=== PATIENT | male | born 1945 | race Caucasian/White ===

== ENCOUNTER → 2018-10-10 13:35 | Outpatient (CLI) | payer MEDICARE, SELFPAY ==
[2018-10-10 14:23] LABS: Basophils # 0.1 K/mm3 (0-0.2); Basophils % 0.9 % (0.1-2.0); Eosinophils # 0.2 K/mm3 (0.0-0.4); Eosinophils % 2.5 % (0.1-12.0); Hematocrit 44.2 % (42.0-52.0); Hemoglobin 14.8 g/dL (14.1-18.0); Lymphocytes # 2.3 K/mm3 (0.7-4.5); Lymphocytes % 26.9 % (10-50); Mean Corpuscular HGB Conc 33.5 g/dL (31.8-35.4); Mean Corpuscular Hemoglobin 29.6 pg (27.0-31.2); Mean Corpuscular Volume 88.4 fl (80-94); Mean Platelet Volume 7.3 fl (7.4-10.4); Monocytes # 0.5 K/mm3 (0.1-1.0); Monocytes % 5.4 % (1.7-9.3); Neutrophils # 5.4 K/mm3 (1.8-7.8); Neutrophils % 64.4 % (37.0-80.0); Platelet Count 259 K/mm3 (142-424); Red Cell Distribution Width 13.4 % (11.5-17.5); White Blood Count 8.4 K/mm3 (4.8-10.8)
[2018-10-10 15:50] LABS: Anion Gap 12.8 mEq/L (5-15); Blood Urea Nitrogen 14 mg/dL (7-18); Calcium 9.1 mg/dL (8.5-10.1); Carbon Dioxide 30 mmol/L (21.0-32.0); Chloride 103 mmol/L (98-107); Creatinine,Serum 0.91 mg/dL (0.70-1.30); Estimated Glomerular Filt Rate 82 ml/min (>60); GFR (African American) 100 ML/MIN (>60); Glucose 195 mg/dL (74-106); Potassium 3.8 mmoL/L (3.5-5.1); Sodium 142 mmol/L (136-145)
== END ==
PROVIDERS: Visit Provider Otolaryngology
DX: Z01.818 Encounter for other preprocedural examination (principal); C44.212 Basal cell carcinoma of skin of right ear and external auricular canal
CPT/HCPCS: 36415; 80048; 85025; 93005

== ENCOUNTER → 2019-05-02 09:10 | Outpatient (CLI) | payer MEDICARE, SELFPAY ==
--- NOTE | 2019-05-02 09:19 | XR_ITS ---
XR hip RT 2-3V w/pelvis HISTORY: ITS.REASON: RT HIP PAIN ORDERING PHYSICIAN: Omar Peoples MD PATIENT AGE: 73 years COMPARISON: None FINDINGS: There are mild osteoarthritic changes of the right hip. There is a small os acetabulum. Mild hypertrophic changes are present along the greater trochanter inferiorly.. No fracture or dislocation. No lytic or blastic change IMPRESSION: Mild osteoarthritis of the right hip
--- NOTE | 2019-05-02 09:19 | XR_ITS ---
XR knee RT 3V HISTORY: ITS.REASON: RT KNEE PAIN ORDERING PHYSICIAN: Omar Peoples MD PATIENT AGE: 73 years COMPARISON: None FINDINGS: There are mild osteoarthritic changes involving all 3 compartments. No fracture or dislocation is evident. Incidental vascular calcification noted as well as some subcutaneous densities in the anterior knee at the distal femur and medial proximal tibial area. IMPRESSION: Osteoarthritis
== END ==
PROVIDERS: PCP Family Medicine; Visit Provider Family Medicine
DX: M25.561 Pain in right knee (principal); M25.551 Pain in right hip
CPT/HCPCS: 73502; 73562

== ENCOUNTER → 2020-09-23 15:16 | Outpatient (CLI) | payer MEDICARE, SELFPAY ==
[2020-09-25 09:54] LABS: Covid-19 Nasal PCR Sendout Lex POSITIVE
== END ==
PROVIDERS: PCP Family Medicine; Visit Provider Family Medicine
DX: Z20.828 Contact with and (suspected) exposure to other viral communicable diseases (principal); U07.1 COVID-19
CPT/HCPCS: U0004

== ENCOUNTER → 2022-06-16 10:44 | Outpatient (CLI) | payer MEDICARE, SELFPAY ==
--- NOTE | 2022-06-16 10:52 | XR_ITS ---
FINAL REPORT CLINICAL HISTORY: RIGHT SIDED SCIATICA COMPARISON: May 15, 2017 FINDINGS: LUMBAR SPINE 5 views of the lumbar spine were obtained. There is no evidence of fracture or dislocation. There is mild rightward curvature. The vertebral alignment is normal. There are moderate and severe degenerative changes with osteophytes which have progressed since the prior exam. There are degenerative changes of the SI joints. There are mild vascular calcifications. IMPRESSION: Moderate and severe degenerative changes which have progressed since the prior exam. No acute bony abnormality. Reviewed, Interpreted and Dictated by Yobany Avalos III, MD Transcribed by [place] Authenticated and [facility]
== END ==
PROVIDERS: PCP Family Medicine; Visit Provider Family Medicine
DX: M54.31 Sciatica, right side (principal); R29.898 Other symptoms and signs involving the musculoskeletal system
CPT/HCPCS: 72110

== ENCOUNTER 2023-12-21 14:43 | Outpatient (CLI) | payer MEDICARE, SELFPAY ==
--- NOTE | 2023-12-21 14:53 | US_ITS ---
FINAL REPORT CLINICAL HISTORY: DM, HLD, HTN, CLAUDICATION FINDINGS: COMPLETE ANKLE/BRACHIAL INDICES BILATERAL Ankle brachial indices were obtained. The right FABI is 1.3. The left FABI is 1.2. IMPRESSION: ABIs are within normal limits bilaterally. Reviewed, Interpreted and Dictated by Yobany Avalos III, MD Transcribed by Natalie Lerma Authenticated and . [facility]
== END 2023-12-21 23:59 ==
LOC: RT 14:44
PROVIDERS: PCP Family Medicine; Visit Provider Family Medicine
DX: I70.213 Atherosclerosis of native arteries of extremities with intermittent claudication, bilateral legs (principal); E11.65 Type 2 diabetes mellitus with hyperglycemia; I10 Essential (primary) hypertension; Z79.84 Long term (current) use of oral hypoglycemic drugs
CPT/HCPCS: 93923

== ENCOUNTER 2024-01-08 14:57 | Outpatient (CLI) | payer MEDICARE, SELFPAY ==
--- NOTE | 2024-01-08 15:02 | MR_ITS ---
FINAL REPORT CLINICAL HISTORY: DISC DEGENERATION. low back pain. Burning pain down right leg. Bilateral leg numbness FINDINGS: Multiplanar MR imaging of the lumbar spine was performed without contrast. On the sagittal T2-weighted images, there is abnormal decreased signal throughout the lumbar discs. The vertebrae are of normal height. The vertebral alignment is normal. L1-2: Moderate diffuse disc bulge is present. There is moderate spinal canal compromise and mild bilateral neural foraminal narrowing. L2-3: Moderate diffuse disc bulge is present. There is high-grade spinal canal compromise. There is moderate facet hypertrophy and moderate bilateral neural foraminal narrowing. L3-4: Moderate diffuse disc bulge is present. There is high-grade spinal canal compromise. There is bilateral facet hypertrophy and moderate bilateral neural foraminal narrowing. L4-5: Moderate diffuse disc bulge is present. There is bilateral facet hypertrophy and ligamentum flavum hypertrophy. There is high-grade spinal canal compromise. There is near complete effacement of the thecal sac. L5-S1: Left paracentral disc protrusion is present with moderate compromise of the left lateral recess. There is moderate left neural foraminal narrowing. IMPRESSION: Multilevel degenerative disc disease with spinal canal compromise most evident at L2-3 and L4-5. Left paracentral disc protrusion at L5-S1. Reviewed, Interpreted and Dictated by Gideon Kimball MD Transcribed by Natalie Lerma Authenticated and [facility]
== END 2024-01-08 23:59 ==
LOC: RAD 14:58
PROVIDERS: PCP Family Medicine; Visit Provider Family Medicine
DX: M51.36 Other intervertebral disc degeneration, lumbar region (principal); M47.816 Spondylosis without myelopathy or radiculopathy, lumbar region; M47.26 Other spondylosis with radiculopathy, lumbar region; R29.818 Other symptoms and signs involving the nervous system
CPT/HCPCS: 72148; 76376

== ENCOUNTER 2024-04-23 21:58 | Observation (INO) | payer MEDICARE, SELFPAY ==
[2024-04-23] VITALS (11 sets, daily range): BP systolic 80–137; BP diastolic 27–79; PULSE 90–101; RESP 15–23; TEMP 36.9; O2SAT 87–99; BMI 31.7
--- NOTE | 2024-04-23 22:15 | ED_ITS ---
<Statement entered by Jack Villegas MD - 04/23/24 23:38> I was consulted by the PADDY, and we discussed the complexity of the problems being addressed. I approved the treatment and management plan for this patient's care in the emergency department, thus performing a substantive portion of the medical decision making. Prior to handoff to Dr. Lott patient had a robust response to Valium which was ordered prior to her assumption of care. He had transient hypotension which resolved with crystalloid bolus, no further action at this time. Patient does have nerve pain and neuropathic distribution along L5: Along the posterior aspect of his leg into his foot. However the emphasis is on is to rule out critical pathology therefore CT imaging is warranted. Jack Villegas MD Discharge Plan Disposition Chief Complaint: PAIN Prescriptions Prescriptions: No Action amlodipine-benazepril [Lotrel] 10-40 mg capsule 1 cap PO DAILY aspirin 81 mg tablet,delayed release (DR/EC) 81 mg PO DAILY metoprolol succinate 100 mg capsule,sprinkle,ER 24hr 100 mg PO DAILY lovastatin 40 mg tablet 40 mg PO DAILY metformin 500 mg tablet 500 mg PO 30 Days hydrochlorothiazide 25 mg tablet 25 mg PO 30 Days Referrals Follow up/Referrals: Omar Peoples MD [Primary Care Provider] - See instructions Discharge ED Provider: Jack Villegas General Adult HPI General Chief complaint: PAIN Stated complaint: Pain Time Seen by Provider: 04/23/24 22:15 History of Present Illness HPI narrative: Patient presents for evaluation of acute left lower extremity pain. Patient reports that he had acute onset of left low back pain/left lower extremity pain. However patient recently had a lumbar laminectomy done by Dr. Mcclendon at [facility] in February. He initially had difficulty ambulating postoperatively and ultimately had a prolonged stay [facility] followed by a 3-week stay at [facility]. Patient has been home for 3 weeks however he has now been able to ambulate with a walker. He has had some mild lumbar pain postoperatively but has been fairly independent intact tibias of daily living so much so that he and his are going to dinner this evening however he was hit with a acute onset left lumbar buttock and what he describes as hip pain. He states it is sharp stabbing. He denies paresthesias loss of bowel or bladder function or saddle anesthesia. He denies calf tenderness chest pain shortness of breath fever chills hemoptysis hematochezia melena nausea vomit diarrhea Related Data Home Medications Medication Instructions Recorded Confirmed amlodipine 10 mg-benazepril 40 mg 1 cap PO DAILY blood pressure 09/14/18 11/08/18 capsule (Lotrel) aspirin 81 mg tablet,delayed 81 mg PO DAILY thinner 09/14/18 11/08/18 release lovastatin 40 mg tablet 40 mg PO DAILY Cholesterol 09/14/18 11/08/18 metoprolol succinate 100 mg 100 mg PO DAILY bloood pressure 09/14/18 11/08/18 capsule sprinkle, ext. release 24 hr hydrochlorothiazide 25 mg tablet 25 mg PO 30 days 11/08/18 11/08/18 metformin 500 mg tablet 500 mg PO 30 days 11/08/18 11/08/18 Allergies Allergy/AdvReac Type Severity Reaction Status Date / Time No Known Drug Allergies Allergy Unknown Verified 11/08/18 14:49 [NKDA] [facility] Disclaimer: The information contained in this section may have been updated after the patient was seen, as this information can be updated by other users. Social History Smoking Status: Unknown if ever smoked alcohol intake: never substance use type: denies use current occupational status: retired Travel in the last 8 weeks: None household members: spouse housing: house current occupational exposures/hazards: No caffeine: No ROS Obtained: Yes Systems reviewed as appropriate & no additional complaints except as documented Physical Exam General General appearance: alert and in no apparent distress Head Head exam: atraumatic and normal inspection Eye Eye exam: Present normal appearance and EOMI ENT ENT exam: Present normal exam, normal oropharynx and mucous membranes moist Neck Neck exam: Present normal inspection and full ROM Chest Chest inspection: Present normal inspection and symmetric chest wall rise Respiratory Respiratory exam: Present normal lung sounds bilaterally Cardiovascular Cardiovascular exam: Present regular rate and normal rhythm Abdominal Exam Abdominal exam: Present soft and normal bowel sounds; Absent tenderness, guarding or rebound Extremities Exam Extremities exam: Present normal inspection; Absent full ROM Back Exam Back exam: Present normal inspection and tenderness; Absent full ROM or vertebral tenderness Neurological Exam Neurological exam: Present alert, oriented X3, CN II-XII intact and reflexes normal; Absent normal gait or motor sensory deficit Medical Decision Making Medical Records Medical records reviewed: Yes I reviewed the patient's medical records. Harpreet Inquiry Pt receiving controlled substance: No Vital Signs: 04/23/24 21:58 Temperature 98.4 F Temperature Source Oral Pulse Rate [Left Radial] 101 H Respiratory Rate 18 Blood Pressure [Right Arm] 137/60 Blood Pressure Mean [Right Arm] 85 Blood Pressure Source [Right Arm] Automatic Cuff Blood Pressure Position [Right Arm] Supine 02 Sat by Pulse Oximetry 95 Oxygen Delivery Method Room Air Lab Data Lab results reviewed: Yes I reviewed the patient's lab results. Orders (Tests/Meds): ED MEDICATIONS Generic Name Dose Route Start Last Admin Trade Name Freq PRN Reason Stop Dose Admin Acetaminophen 1,000 mg 04/23/24 22:24 Acetaminophen 1,000mg/100ml Vial IV 04/23/24 22:25 ONCE ONE Dexamethasone Sodium Phosphate 10 mg 04/23/24 22:24 Dexamethasone 4mg/Ml 5ml Mdv IV 04/23/24 22:25 ONCE ONE Lactated Ringer's 1,000 mls @ 999 mls/hr 04/23/24 22:24 Lactated Ringer's 1000 Ml Bag IV 04/23/24 23:24 .Q1H1M ONE Ketorolac Tromethamine 15 mg 04/23/24 22:24 Ketorolac 30mg/Ml Vial IV 04/23/24 22:25 ONCE ONE Ondansetron HCl 4 mg 04/23/24 22:24 Ondansetron 4mg/2ml Vial IV 04/23/24 22:25 ONCE ONE Discontinued Medications Generic Name Dose Route Start Last Admin Trade Name Freq PRN Reason Stop Dose Admin Methocarbamol 500 mg 04/23/24 22:24 Methocarbamol 500mg Tablet PO 04/23/24 22:25 ONCE ONE ORDERS Category Date Time Status CT bony pelvis Stat Cat Scan 04/23/24 22:[address] lumbar spine wo con Stat Cat Scan 04/23/24 22:24 Ordered CBC w/Auto Diff [Complete Blood Count Auto Diff] Stat Lab 04/23/24 22:24 Ordered CMP [Comprehensive Metabolic Panel] Stat Lab 04/23/24 22:24 Ordered Magnesium Stat Lab 04/23/24 22:25 Ordered Medical Decision Narrative: In summary patient is a 78-year-old male who presents to the emergency department for evaluation of left low back pain left lower extremity pain. Patient is hemodynamically stable upon arrival, afebrile. Physical exam is remarkable for tenderness to palpation in the lumbar spine left glutes area with exquisite increase in pain with attempted range of motion testing. Patient is however neurovascular tact distally. Patient has no dependent erythema or palpable cords. He does have motor and sensory intact distally. He has no saddle anesthesia surgical site appears to be well-healed.. Differential diagnosis includes sciatica versus muscle spasm versus disc herniation versus stenosis etc. Initial workup will be conducted with hematologic labs CT scan of the lumbar spine and bony pelvis. Initial interventions include crystalloid bolus Toradol Tylenol Decadron and Valium. Initial workup started and pending at the time of handoff to Dr. Lott at 2300 hrs. Critical Care Critical Care Time Critical Care Time: No
--- NOTE | 2024-04-23 22:24 | CT_ITS ---
PROCEDURE INFORMATION: Exam: CT Pelvis Without Contrast; Skeletal Exam date and time: 04/23/2024 11:28 PM Age: 78 years old Clinical indication: Pelvic pain; Additional info: Acute low back pain, left lower extremity pain TECHNIQUE: Imaging protocol: Computed tomography of the pelvis without contrast. Exam focused on the skeleton. Radiation optimization: All CT scans at this facility use at least one of these dose optimization techniques: automated exposure control; mA and/or kV adjustment per patient size (includes targeted exams where dose is matched to clinical indication); or iterative reconstruction. COMPARISON: CR [id number] HIP LT 2-3V W/PELVIS IF PERFOR 05/15/2017 9:46 AM FINDINGS: Intestine: Left colon diverticulosis without acute inflammation. Reproductive: The prostate gland is significantly enlarged. Urinary bladder: The urinary bladder significantly distended without focal abnormality. Bones/joints: The SI joints, hips and pubic symphysis are normally aligned. There are riuk-xe-uortryua degenerative changes of the SI joints and hips. No acute fracture. No evidence for avascular necrosis. Soft tissues: Small fat containing left inguinal hernia. IMPRESSION: 1. No acute findings. Txnh-zb-[id number] degenerative changes of the SI joints and hips. 2. Other nonemergent findings as noted.
--- NOTE | 2024-04-23 22:24 | CT_ITS ---
PROCEDURE INFORMATION: Exam: CT Lumbar Spine Without Contrast Exam date and time: 04/23/2024 11:26 PM Age: 78 years old Clinical indication: Low back pain; Additional info: Acute low back pain left lower extremity pain TECHNIQUE: Imaging protocol: Computed tomography of the lumbar spine without contrast. Radiation optimization: All CT scans at this facility use at least one of these dose optimization techniques: automated exposure control; mA and/or kV adjustment per patient size (includes targeted exams where dose is matched to clinical indication); or iterative reconstruction. COMPARISON: MR LUMBAR SPINE WO CON 01/08/2024 3:06 PM FINDINGS: Bones/joints: Subtle scoliosis is noted convex right centered at L1-L2. Moderate degenerative disc disease at L1-L2 and L2-L3 with zzgi-kx-[id number] degenerative disc disease from L3 through S1. There has been laminectomy throughout the lumbar spine. No acute fracture. Diffuse significant facet arthropathy is present. There is slgq-bw-sblryfkp bony foraminal stenosis on the left at L5-S1. There are mild to moderate degenerative changes of the SI joints. Kidneys and ureters: Nonobstructing left intrarenal calculi are noted. Urinary bladder: Significant distension of the urinary bladder is noted. Reproductive: The prostate gland is significantly enlarged. Soft tissues: Unremarkable. IMPRESSION: 1. No acute findings of the lumbar spine. 2. Laminectomy from L1 through L5. 3. Bewn-ez-fvsvbmpi left foraminal stenosis at L5-S1. 4. Significant distension of the urinary bladder. 5. Other nonurgent findings as noted.
[2024-04-23 22:36] LABS: Basophils % 0.5 % (0.1-2.0); Eosinophils # 0.1 K/mm3 (0.0-0.4); Eosinophils % 0.9 % (0.1-12.0); Hematocrit 41.5 % (42.0-52.0); Hemoglobin 13.8 g/dL (14.1-18.0); Lymphocytes # 1.2 K/mm3 (0.7-4.5); Lymphocytes % 13.2 % (10-50); Mean Corpuscular HGB Conc 33.3 g/dL (31.8-35.4); Mean Corpuscular Hemoglobin 29.7 pg (27.0-31.2); Mean Corpuscular Volume 89.3 fl (80-94); Monocytes # 0.3 K/mm3 (0.1-1.0); Monocytes % 3.2 % (1.7-9.3); Neutrophils # 7.6 K/mm3 (1.8-7.8); Neutrophils % 82.2 % (37.0-80.0); Platelet Count 354 K/mm3 (142-424); Red Blood Count 4.64 M/mm3 (4.60-6.20); Red Cell Distribution Width 14.3 % (11.5-17.5); White Blood Count 9.3 K/mm3 (4.8-10.8)
[2024-04-23] MEDS: DEXAMETHASONE 4MG/ML 5ML MDV 10 MG IV (22:43)
[2024-04-23] MEDS: LACTATED RINGERS 1000ML 1,000 ML 999 ML IV (22:43)
[2024-04-23] MEDS: ACETAMINOPHEN 1,000MG/100ML VIAL 1000 MG IV (22:43)
[2024-04-23] MEDS: ONDANSETRON 4MG/2ML VIAL 4 MG IV (22:44)
[2024-04-23] MEDS: diazePAM 10MG/2ML SYRINGE 5 MG IV (22:44)
[2024-04-23] MEDS: KETOROLAC 30MG/ML VIAL 15 MG IV (22:44)
[2024-04-23 22:51] LABS: Chloride 105 mmol/L (98-107)
[2024-04-23 22:52] LABS: Potassium 4.1 mmoL/L (3.5-5.1); Sodium 140 mmol/L (136-145)
[2024-04-23 22:54] LABS: Alanine Aminotransferase 47 U/L (12-78); Aspartate Amino Transferase 43 U/L (17-59); Blood Urea Nitrogen 16 mg/dl (9-20); Creatinine Clearance Estimated 87 mL/min (50-200); Estimated Glomerular Filt Rate 82 ml/min (>60); GFR (African American) 99 ML/MIN (>60)
[2024-04-23 22:55] LABS: Albumin Level 4.2 g/dl (3.5-5.0); Albumin/Globulin Ratio 1.6 (1.1-1.8); Alkaline Phosphatase 105 U/L (38-126); Anion Gap 11.1 mEq/L (5-15); Bilirubin,Total 0.4 mg/dl (0.2-1.3); Calcium 10.1 mg/dl (8.4-10.2); Carbon Dioxide 28 mmol/L (22.0-30.0); Globulin 2.6 g/dL (1.3-3.2); Glucose 177 mg/dl (74-100); Total Protein,Serum 6.8 g/dl (6.3-8.2)
--- NOTE | 2024-04-23 23:04 | PC.NURSE ---
Pt O2 dropped to 87% and BP dropped to 80's over 40's after administration of valium. Pt placed on 2L NC and LR placed on pressure bag. MD Villegas notified and at bedside at this time. Pt is A&OX4
[2024-04-23 23:15] LABS: Magnesium 1.4 mg/dl (1.6-2.3)
--- NOTE | 2024-04-23 23:19 | PC.NURSE ---
pts BP improved to 130/60 MD aware
[2024-04-23] MEDS: MAGNESIUM OXIDE 400MG TABLET 400 MG PO (23:39)
[2024-04-24] VITALS (13 sets, daily range): BP systolic 95–160; BP diastolic 40–97; PULSE 60–105; RESP 13–22; TEMP 36.3–37; O2SAT 91–96; BMI 27.2
--- NOTE | 2024-04-24 00:17 | PC.NURSE ---
rounded on pt and pts family. no needs voiced at this time
--- NOTE | 2024-04-24 00:36 | PC.NURSE ---
Pt was placed back on room air @2215. Pt has tolerated well. Pt has maintained O2 sats >90%. SBP has maintained >110. Pt still reports left hip/buttock pain that radiates down left leg. Lott aware.
--- NOTE | 2024-04-24 01:00 | PC.NURSE ---
rounded on pt at this time. MD Patrick at bedside. Pt and family voice no needs at this time.
--- NOTE | 2024-04-24 01:12 | P.HP_ITS ---
History of Present Illness *Admission Date: 04/24/24 *History of present illness: Patient presents for evaluation of acute left lower extremity pain. Patient reports that he had acute severe onset of left low back pain/left lower extremity pain. However patient recently had a lumbar laminectomy done by Dr. Mcclendon at [facility] in February. He initially had difficulty ambulating postoperatively and ultimately had a prolonged stay [facility] followed by a 3-week stay at [facility]. Patient has been home for 3 weeks however he has now been able to ambulate with a walker. He has had some mild lumbar pain postoperatively but has been fairly independent intact tibias of daily living so much so that he and his are going to dinner this evening however he was hit with a acute onset left lumbar buttock and what he describes as hip pain. He states it is sharp stabbing. Radiates down his leg into his foot. Was more active today working with therapy doing his exercises including walking up and down the ramp of his house for the first time. He does not think that he overdid his exercises. He is unable to move in bed due to the severity of his pain and is requesting assistance as he cannot go home in this condition. CT scans done in the ER demonstrated no acute finding or pathology Received Toradol, dexamethasone, Tylenol, Valium with minimal improvement in his symptoms. He became transiently hypotensive with Valium. Currently in severe pain unable to move Related Data [facility] B[facility] AT THE [facility] Disclaimer: The information contained in this section may have been updated after the patient was seen, as this information can be updated by other users. Social History Smoking Status: Unknown if ever smoked alcohol intake: never substance use type: denies use current occupational status: retired Travel in the last 8 weeks: None household members: spouse housing: house current occupational exposures/hazards: No caffeine: No Review of Systems Review of Systems Review of systems:: pertinent systems reviewed and negative unless documented below *Musculoskeletal Musculoskeletal: Reports as per HPI, Reports arthralgias, Reports back pain and Reports radiating pain into limb Meds Home Medications and Allergies Home Medications Medication Instructions Recorded Confirmed Type amlodipine 10 mg-benazepril 40 mg 1 cap PO DAILY blood pressure 09/14/18 11/08/18 History capsule (Lotrel) aspirin 81 mg tablet,delayed 81 mg PO DAILY thinner 09/14/18 11/08/18 History release lovastatin 40 mg tablet 40 mg PO DAILY Cholesterol 09/14/18 11/08/18 History metoprolol succinate 100 mg 100 mg PO DAILY bloood pressure 09/14/18 11/08/18 History capsule sprinkle, ext. release 24 hr hydrochlorothiazide 25 mg tablet 25 mg PO 30 days 11/08/18 11/08/18 History metformin 500 mg tablet 500 mg PO 30 days 11/08/18 11/08/18 History New Prescriptions to Start Prescriptions: Allergies Allergy/AdvReac Type Severity Reaction Status Date / Time No Known Drug Allergies Allergy Unknown Verified 11/08/18 14:49 [NKDA] Exam Data for Last 24 hours Vital signs and Labs for Last 24 Hours: Temp Pulse Resp BP Pulse Ox O2 Del Method O2 Flow Rate 98.4 F 88 15 112/59 L 93 L Nasal Cannula 2 04/23/24 21:58 04/24/24 00:50 04/24/24 00:50 04/24/24 00:50 04/24/24 00:50 04/23/24 23:02 04/23/24 23:02 Laboratory Results - last 24 hr 04/23/24 22:25: WBC 9.3, RBC 4.64, Hgb 13.8 L, Hct 41.5 L, MCV 89.3, MCH 29.7, MCHC 33.3, RDW 14.3, Plt Count 354, MPV 8.0, Neut % (Auto) 82.2 H, Lymph % (Au to) 13.2, Stone % (Auto) 3.2, Eos % (Auto) 0.9, Baso % (Auto) 0.5, Neut # (Auto) 7.6, Lymph # (Auto) 1.2, Stone # (Auto) 0.3, Eos # (Auto) 0.1, Baso # (Auto) 0.0, Sodium 140, Potassium 4.1, Chloride 105, Carbon Dioxide 28, Anion Gap 11.1, BUN 16, Creatinine 0.90, Estimated Creat Clear 87, Estimated GFR 82, Est GFR ( Amer) 99, Glucose 177 H, Calcium 10.1, Magnesium 1.4 L, Total Bilirubin 0.4, AST 43, ALT 47, Alkaline Phosphatase 105, Total Protein 6.8, Albumin 4.2, Globulin 2.6, Albumin/Globulin Ratio 1.6 I & O for Last 24 hours: Intake & Output 04/21/24 04/22/24 04/23/24 04/24/24 23:59 23:59 23:59 23:59 Weight 97.522 kg Constitutional Constitutional: no acute distress *Routine HEENT Exam Head: Present normocephalic Eye: Present EOMI and PERRL ENT: Present mucous membranes moist *Routine Neck Exam Neck: Present supple; Absent lymphadenopathy *Routine Respiratory Exam Respiratory: Present CTA bilaterally *Routine Cardiovascular Exam Cardiovascular: Present RRR *Routine Abdominal Exam Abdominal: Present soft and normoactive bowel sounds; Absent tenderness *Routine Rectal Exam Rectal:: deferred *Routine Genitalia Exam Genitalia:: deferred *Routine Extremities Exam Extremities: Absent cyanosis, clubbing or edema Routine Back/Spine/Pelvis Exam Back/Spine: Present paraspinal tenderness and vertebral tenderness Comments: L buttock pain *Routine Skin Exam Skin: Present warm; Absent rash *Routine Neurological Exam Neurological: Present alert and oriented X3 Assessment and Plan *Assessment and plan (1) Back pain: Status: Acute Category: Medical Code(s): M54.9 - Dorsalgia, unspecified (2) Severe pain: Status: Acute Category: Medical Code(s): R52 - Pain, unspecified Plan 78-year-old man with recent laminectomy presenting with severe retractable back pain radiating down his legs. Patient is unable to move in bed, symptoms sound like sciatica possibly exacerbated by increasing activity. Patient is requiring aggressive pain management due to the severe burden of his symptoms. Will initiate morphine now and gabapentin with the plan to decrease morphine dosage as gabapentin becomes therapeutic. Adjust both as tolerated Pain management Severe back pain Laminectomy -In the emergency department had minimal effect with Toradol, Valium, acetaminophen dexamethasone, methocarbamol -Retitrate as pain improves -Morphine 2 mg every 2 hours as needed -Gabapentin 200 mg 3 times daily -Adjust medications as needed, treat to affect Hypertension -Hold home medications currently controlled -Resume amlodipine benazepril, Toprol, and hydrochlorothiazide once able Hyperlipidemia -Lovastatin 40
--- NOTE | 2024-04-24 01:19 | PC.NURSE ---
Report called to Elaine Gomez RN on 2nd floor at this time.
[2024-04-24] MEDS: GABAPENTIN 100MG CAPSULE 200 MG PO ×4 (01:36→20:28)
--- NOTE | 2024-04-24 02:19 | PC.NURSE ---
Patient arrived to floor via stretcher from ED at 1:27.
--- NOTE | 2024-04-24 06:40 | PC.NURSE ---
Pt is alert and oriented. Remained on right side since arriving. Pt has not complained of pain, pt rested well. When checking on patient and getting blood sugar, pt states he is in pain. Treating per dec. Pt uses urinal. Lung sounds clear. Pt does not move much in bed. Call light in reach. Bed alarm on based on severity of pain and unable to ambulate independently.
[2024-04-24] MEDS: MORPHINE 2MG/ML SYRINGE 2 MG IV ×2 (06:49→12:00)
[2024-04-24 06:51] LABS: Basophils % 0.3 % (0.1-2.0); Eosinophils % 0.4 % (0.1-12.0); Hematocrit 40.6 % (42.0-52.0); Hemoglobin 13.3 g/dL (14.1-18.0); Lymphocytes # 0.6 K/mm3 (0.7-4.5); Lymphocytes % 10.1 % (10-50); Mean Corpuscular HGB Conc 32.7 g/dL (31.8-35.4); Mean Corpuscular Volume 88.7 fl (80-94); Mean Platelet Volume 7.5 fl (7.4-10.4); Monocytes # 0.1 K/mm3 (0.1-1.0); Monocytes % 1.4 % (1.7-9.3); Neutrophils # 5.6 K/mm3 (1.8-7.8); Neutrophils % 87.8 % (37.0-80.0); Platelet Count 305 K/mm3 (142-424); Red Blood Count 4.58 M/mm3 (4.60-6.20); Red Cell Distribution Width 14.5 % (11.5-17.5); White Blood Count 6.4 K/mm3 (4.8-10.8)
[2024-04-24 06:55] LABS: MANUAL DIFFERENTIAL MANUAL DIFFERENTIAL (MANUAL DIFF)
[2024-04-24 07:05] LABS: Alanine Aminotransferase 42 U/L (12-78); Albumin Level 3.8 g/dl (3.5-5.0); Albumin/Globulin Ratio 1.5 (1.1-1.8); Alkaline Phosphatase 96 U/L (38-126); Anion Gap 9.9 mEq/L (5-15); Aspartate Amino Transferase 49 U/L (17-59); Bilirubin,Total 0.5 mg/dl (0.2-1.3); Blood Urea Nitrogen 20 mg/dl (9-20); Calcium 9.5 mg/dl (8.4-10.2); Carbon Dioxide 30 mmol/L (22.0-30.0); Chloride 103 mmol/L (98-107); Creatinine Clearance Estimated 74 mL/min (50-200); Estimated Glomerular Filt Rate 110 ml/min (>60); GFR (African American) 133 ML/MIN (>60); Globulin 2.5 g/dL (1.3-3.2); Glucose 167 mg/dl (74-100); Magnesium 1.5 mg/dl (1.6-2.3); Phosphorous 4.5 mg/dl (2.5-4.5); Potassium 3.9 mmoL/L (3.5-5.1); Sodium 139 mmol/L (136-145); Total Protein,Serum 6.3 g/dl (6.3-8.2)
[2024-04-24 07:55] LABS: Lymphocytes % 17 % (10-50); Monocytes % 1 % (2-9); Neutrophils % 82 % (42-76); Platelet Estimate Normal; RBC Morphology Normal; Total Cells Counted 100
--- NOTE | 2024-04-24 09:26 | HMH.PHAINT1 ---
Pharmacy Intervention Comments: MEDICATION RECONCILIATION COMPLETED ON PATIENT USING EXTERNAL FILL HISTORY FROM PHARMACY. -TIMO PICKARD, DOMINICD
[2024-04-24] MEDS: ENOXAPARIN 40MG/0.4ML SYRINGE 40 MG SQ (09:50)
--- NOTE | 2024-04-24 10:32 | HMH.PTEV ---
Physical Therapy Evaluation Rehab PT IP Evaluation Start: 04/24/24 09:32 Freq: ONCE Status: Active Protocol: Document 04/24/24 10:03 MARIA L (Rec: 04/24/24 10:31 MARIA L [id number]) Subjective/History History History Patient Jimmy Estrada is a 78 year old male who recently had a lumbar laminectomy done (February of this year), his chief complaints are LBP and L hip pain that travels distally towards the foot. Patient stated that he in extreme pain last night and was hardly able to walk and get into the car. The patient rates his current pain at a 9/10. Patient described the pain sharp and typically remains constant when occurring. He was previously able to ambulate at home and it was mentioned that he does not have any steps within the home or steps to enter in his home . The patient does use a rolling walking when able to ambulate. Patient is ready to get back to prior level of function in order to return back to work appropriately. Subjective Subjective Patient needed assistance with bedside transfer to bedside chair, overall he was compliant and appreciative of physical therapy helping him during this visit as he has not been out of bed yet. It is noted that he did experience some limitation when standing up from the edge of the bedside. In total the patient tolerated the physical therapy session very well but did experience some slight discomfort during activity. - Patient was properly positioned comfortably in the bedside chair, and the call camara was left within reach Rehab PT IP Eval Objective Appearance Patient Behavior Appropriate Patient Orientation Person,Place,Name,Birthday, Month Speech Pattern Clear,Appropriate,Coherent Balance Ability to Arise Able, uses arms to help Sitting Balance Leans or slides in chair Standing Balance Narrow stance w/o support Dynamic Sitting Balance Ability Good Dynamic Standing Balance Ability Good Transfers Bed Transfer Ability Independent Chair Transfer Ability Moderate x 1 (50% assist) Sit to Stand Chair Transfer Ability Moderate x 1 (50% assist) Pain left leg Pain Intensity 9 Rehab PT IP prob,goals,plan Problems Date of Evaluation: 04/24/24 PT IP Problems Transfers Rehab Potential Rehab Potential Good Equipment Needs Assistive Devices Rolling / Wheeled Walker Plan PT Intervention Plan Transfers,Gait,Therapeutic Exercise PT Plan Frequency Daily Duration LOS Discharge Goals Bed Transfer Ability Independent Sit to Stand Chair Transfer Ability Independent Ambulation Assistive Device Rolling Walker Discharge Plan PT Discharge Plan Patient is appropriate currently for skilled physical therapy/rehab placement to address his limitations and safety concerns. Eval Complexity Eval Charge Codes 47951 - High Complexity PHYSICIAN CERTIFICATION: I certify the specified therapy services for Jimmy Estrada are required, authorized, and reviewed every 30 days.
--- NOTE | 2024-04-24 11:24 | SW/DCPLANNER ---
Addendum entered by Isha Blake RN 04/26/24 15:10: Order/clinical faxed to [facility]. Original Note: I spoke w/ this patient regarding plans once medically stable for discharge. PT evaluated patient and recommended SNF level of care at time of discharge. Patient stated that he is currently established w/ [facility] and resides at home w/ his . Patient prefers to return back home and resume home health services at time of discharge. I will continue to follow up w/ lamine, MD and PT while admitted. Discharge date is unknown at this time.
[2024-04-24] MEDS: HYDROMORPHONE 2MG/ML SYRINGE 0.5 MG IV ×2 (16:27→22:31)
--- NOTE | 2024-04-24 17:51 | P.PN_ITS ---
Subjective *Date: 04/24/24 *Time: 17:59 Interval history: Patient interviewed multiple times today by Dr. Gee. Patient states he is improving with conservative therapy, and physical therapy sessions. Patient and patient's request several days. Of conservative therapy before cons idering transfer to [facility] for evaluation by laminectomy february [address] Mcclendon. Denies fever/chills overnight. Able to ambulate from recliner to door with physical therapy and minimal assistance. Medical Exam Vital signs and Labs for Last 24 Hours: Vital Signs Temp Pulse Pulse Resp BP BP Pulse Ox 04/24/24 15:48 98.1 F 102 H 18 134/66 95 04/24/24 13:00 04/24/24 12:00 97.5 F L 104 H 20 133/73 95 04/24/24 11:00 04/24/24 09:00 04/24/24 08:00 94 L 04/24/24 08:00 97.6 F 105 H 18 160/97 H 94 L 04/24/24 06:45 04/24/24 05:00 04/24/24 04:00 97.3 F L 60 14 131/69 95 04/24/24 03:00 04/24/24 01:21 98.4 F 95 H 15 113/49 L 04/24/24 01:19 98 F 95 H 15 113/40 L 93 L 04/24/24 00:50 88 15 112/59 L 93 L 04/24/24 00:41 104 H 16 95/49 L 91 L 04/24/24 00:20 90 13 113/51 L 93 L 04/24/24 00:11 101 H 22 138/71 95 04/24/24 00:00 92 H 15 113/48 L 93 L 04/23/24 23:50 90 15 118/47 L 94 L 04/23/24 23:41 97 H 23 121/74 96 04/23/24 23:34 90 15 133/79 95 04/23/24 23:14 94 H 17 130/60 99 04/23/24 23:11 97 H 21 116/61 98 04/23/24 23:08 96 H 21 110/37 L 97 04/23/24 23:04 85/27 L 04/23/24 23:02 93 H 16 80/35 L 96 04/23/24 22:59 94 H 16 82/38 L 95 04/23/24 22:56 95 H 89/41 L 87 L 04/23/24 21:58 98.4 F 101 H 18 137/60 95 O2 Del Method O2 Flow Rate 04/24/24 15:48 Room Air 04/24/24 13:00 Room Air 04/24/24 12:00 Room Air 04/24/24 11:00 Room Air 04/24/24 09:00 Room Air 04/24/24 08:00 Room Air 04/24/24 08:00 Room Air 04/24/24 06:45 Room Air 04/24/24 05:00 Room Air 04/24/24 04:00 Room Air 04/24/24 03:00 Room Air 04/24/24 01:21 Room Air 04/24/24 01:19 Room Air 04/24/24 00:50 04/24/24 00:41 04/24/24 00:20 04/24/24 00:11 04/24/24 00:00 04/23/24 23:50 04/23/24 23:41 04/23/24 23:34 04/23/24 23:14 04/23/24 23:11 04/23/24 23:08 04/23/24 23:04 04/23/24 23:02 Nasal Cannula 2 04/23/24 22:59 Nasal Cannula 2 04/23/24 22:56 04/23/24 21:58 Room Air Intake and Output 04/24/24 04/24/24 04/24/24 07:59 15:59 23:59 Intake Total 450 / 450 Output Total 550 / 850 300 / 850 Balance -550 / -400 150 / -400 Intake: Intake, Oral Amount 450 / 450 Output: Output, Urine Amount 550 / 850 300 / 850 Other: Weight 83.489 kg Patient Weight 04/24/24 23:59 Weight 83.489 kg Laboratory Results - last 24 hr 04/23/24 22:25: WBC 9.3, RBC 4.64, Hgb 13.8 L, Hct 41.5 L, MCV 89.3, MCH 29.7, MCHC 33.3, RDW 14.3, Plt Count 354, MPV 8.0, Neut % (Auto) 82.2 H, Lymph % (Auto) 13.2, Converse % (Auto) 3.2, Eos % (Auto) 0.9, Baso % (Auto) 0.5, Neut # (Auto) 7.6, Lymph # (Auto) 1.2, Converse # (Auto) 0.3, Eos # (Auto) 0.1, Baso # (Auto) 0.0, Sodium 140, Potassium 4.1, Chloride 105, Carbon Dioxide 28, Anion Gap 11.1, BUN 16, Creatinine 0.90, Estimated Creat Clear 87, Estimated GFR 82, Est GFR ( Amer) 99, Glucose 177 H, Calcium 10.1, Magnesium 1.4 L, Total Bilirubin 0.4, AST 43, ALT 47, Alkaline Phosphatase 105, Total Protein 6.8, Albumin 4.2, Globulin 2.6, Albumin/Globulin Ratio 1.6 04/24/24 06:35: WBC 6.4 D, RBC 4.58 L, Hgb 13.3 L, Hct 40.6 L, MCV 88.7, MCH 29.0, MCHC 32.7, RDW 14.5, Plt Count 305, MPV 7.5, Neut % (Auto) 87.8 H, Lymph % (Auto) 10.1, Converse % (Auto) 1.4 L, Eos % (Auto) 0.4, Baso % (Auto) 0.3, Neut # (Auto) 5.6, Lymph # (Auto) 0.6 L, Converse # (Auto) 0.1, Eos # (Auto) 0.0, Baso # (Auto) 0.0, Total Counted 100, Neutrophils % (Manual) 82 H, Lymphocytes % (Manual) 17, Monocytes % (Manual) 1 L, Platelet Estimate Normal, RBC Morphology Normal, Sodium 139, Potassium 3.9, Chloride 103, Carbon Dioxide 30, Anion Gap 9.9, BUN 20, Creatinine 0.70 D, Estimated Creat Clear 74, Estimated GFR 110, Est GFR ( Amer) 133 D, Glucose 167 H, Calcium 9.5, Phosphorus 4.5, Magnesium 1.5 L, Total Bilirubin 0.5, AST 49, ALT 42, Alkaline Phosphatase 96, Total Protein 6.3, Albumin 3.8, Globulin 2.5, Albumin/Globulin Ratio 1.5 I & O for Labs for Last 24 Hours: Intake & Output 04/21/24 04/22/24 04/23/24 04/24/24 23:59 23:59 23:59 23:59 Intake Total 450 / 450 Output Total 850 / 850 Balance -400 / -400 Weight 97.522 kg 83.489 kg Head: Present normocephalic and normal inspection ENT: Present normal exam and mucous membranes moist Neck: Present normal inspection Respiratory: Present CTA bilaterally and distant breath sounds Cardiac: Present Reg Rate and Rhythm and Regular Rate GI: Present soft and normal bowel sounds Extremities: Present normal inspection and normal capillary refill Skin: Present intact and warm Additional Findings:: Tender to palpation left hip region. Left hip pain with all range of motion exercises both passive and active Assessment and Plan *Assessment and plan (1) Severe pain: Status: Acute Category: Medical Code(s): R52 - Pain, unspecified Plan 78-year-old man with recent laminectomy presenting with severe retractable back pain radiating down his legs. Patient is unable to move in bed, symptoms sound like sciatica possibly exacerbated by increasing activity. Patient is requiring aggressive pain management due to the severe burden of his symptoms. Will initiate morphine now and gabapentin with the plan to decrease morphine dosage as gabapentin becomes therapeutic. Adjust both as tolerated Pain management Severe back pain s/p Laminectomy done at [facility] by Dr. Mcclendon. Spoke with Dr. Austin, orthopedic surgeon who recommended Dr. Mcclendon to reevaluate patient for back instability. Continue methocarbamol scheduled, scheduled gabapentin, as needed Dilaudid, and muscle relaxants. Patient appears to be proved on current therapy. Also continue daily physical therapy sessions. Hypertension -Hold home medications currently controlled -Resume amlodipine benazepril, Toprol, and hydrochlorothiazide once able Hyperlipidemia -Lovastatin 40 Disposition: ? Patient states back pain improving on muscle relaxants, as needed IV Dilaudid, methocarbamol scheduled. Will add gabapentin therapy. Long goals of care discussion occurred at bedside between Dr. Gee and patient with patient's present. Family would like to give current therapy a couple days. . Patient now able to walk to the door with physical therapy today. states patient unable to ambulate overnight so this is a big improvement. Will continue current therapy for a few days per /patient request. Patient has outpatient appointment with [facility] orthopedic surgeon who did back surgery early next week.
--- NOTE | 2024-04-24 18:56 | PC.NURSE ---
pt alert and oriented x4, VSS. Pt has complained of pain periodically throughout the day, treated per MAR. Pt independently uses his urinal. call light in reach
[2024-04-24] MEDS: METHOCARBAMOL 500MG TABLET 500 MG PO (20:29)
[2024-04-24 20:46] LABS: POC Glucose,Bedside 198 (70-110)
[2024-04-24] MEDS: CARVEDILOL 25MG TABLET 25 MG PO (22:40)
[2024-04-25] MEDS: HYDROMORPHONE 2MG/ML SYRINGE 0.5 MG IV ×4 (01:57→20:34)
[2024-04-25 04:00] VITALS: BP 137/76; PULSE 75; RESP 18; TEMP 36.5; O2SAT 95; BMI 27.3
--- NOTE | 2024-04-25 05:21 | PC.NURSE ---
pt cont to report left hip pain, x2 staff assist to return to bed from chair, pt weak, pt reports decrease in pain when ambulatig, adequate uop, vss
[2024-04-25 06:08] LABS: POC Glucose,Bedside 133 (70-110)
[2024-04-25 08:00] VITALS: BP 147/81; PULSE 90; RESP 14; TEMP 36.7; O2SAT 93
[2024-04-25 08:25] LABS: Basophils % 0.2 % (0.1-2.0); Hematocrit 40.9 % (42.0-52.0); Hemoglobin 13.3 g/dL (14.1-18.0); Lymphocytes # 1.6 K/mm3 (0.7-4.5); Lymphocytes % 14.2 % (10-50); Mean Corpuscular HGB Conc 32.6 g/dL (31.8-35.4); Mean Corpuscular Hemoglobin 29.7 pg (27.0-31.2); Mean Corpuscular Volume 91.2 fl (80-94); Monocytes # 0.5 K/mm3 (0.1-1.0); Neutrophils # 9.4 K/mm3 (1.8-7.8); Neutrophils % 81.6 % (37.0-80.0); Platelet Count 304 K/mm3 (142-424); Red Blood Count 4.48 M/mm3 (4.60-6.20); Red Cell Distribution Width 14.5 % (11.5-17.5); White Blood Count 11.5 K/mm3 (4.8-10.8)
[2024-04-25 08:33] LABS: Alanine Aminotransferase 47 U/L (12-78); Albumin Level 3.8 g/dl (3.5-5.0); Albumin/Globulin Ratio 1.5 (1.1-1.8); Alkaline Phosphatase 86 U/L (38-126); Anion Gap 4.9 mEq/L (5-15); Aspartate Amino Transferase 39 U/L (17-59); Bilirubin,Total 0.4 mg/dl (0.2-1.3); Blood Urea Nitrogen 23 mg/dl (9-20); Calcium 9.5 mg/dl (8.4-10.2); Carbon Dioxide 35 mmol/L (22.0-30.0); Chloride 103 mmol/L (98-107); Creatinine Clearance Estimated 75 mL/min (50-200); Estimated Glomerular Filt Rate 110 ml/min (>60); GFR (African American) 133 ML/MIN (>60); Globulin 2.5 g/dL (1.3-3.2); Glucose 162 mg/dl (74-100); Magnesium 1.7 mg/dl (1.6-2.3); Potassium 3.9 mmoL/L (3.5-5.1); Sodium 139 mmol/L (136-145); Total Protein,Serum 6.3 g/dl (6.3-8.2)
[2024-04-25 08:38] LABS: C-Reactive Protein 1.6 mg/L (0-4)
[2024-04-25 08:49] LABS: Procalcitonin 0.262 ng/mL (0.0-2.0)
[2024-04-25] MEDS: HYDROCHLOROTHIAZIDE 25 MG PO (09:12)
[2024-04-25] MEDS: CARVEDILOL 25 MG PO ×2 (09:12→20:32)
[2024-04-25] MEDS: ASPIRIN EC 81MG TABLET 81 MG PO (09:13)
[2024-04-25] MEDS: BENAZEPRIL PO (09:13)
[2024-04-25] MEDS: AMLODIPINE PO (09:13)
[2024-04-25] MEDS: POTASSIUM CHLORIDE 10MEQ TABLET.ER 10 MEQ PO (09:13)
[2024-04-25] MEDS: ENOXAPARIN 40MG/0.4ML SYRINGE 40 MG SQ (09:13)
[2024-04-25] MEDS: FINASTERIDE 5MG TABLET 5 MG PO (09:13)
[2024-04-25] MEDS: METHOCARBAMOL 500MG TABLET 750 MG PO ×3 (09:13→20:33)
[2024-04-25] MEDS: GABAPENTIN 100MG CAPSULE 200 MG PO ×3 (09:16→20:32)
[2024-04-25 10:31] LABS: POC Glucose,Bedside 241 (70-110)
[2024-04-25 12:00] VITALS: BP 131/68; PULSE 72; RESP 15; TEMP 36.5; O2SAT 90
[2024-04-25] MEDS: IBUPROFEN 600 MG TABLET PO ×2 (12:58→20:32)
--- NOTE | 2024-04-25 15:29 | EXP.ACUTE.PN ---
Subjective *Date: 04/25/24 *Time: 15:32 Interval history: Patient states he continues to improve daily with physical therapy. Ambulating better today versus yesterday. Medical Exam Vital signs and Labs for Last 24 Hours: Vital Signs Temp Pulse Resp BP Pulse Ox O2 Del Method 04/25/24 15:00 Room Air 04/25/24 12:48 Room Air 04/25/24 12:00 97.7 F 72 15 131/68 90 L Room Air 04/25/24 10:15 Room Air 04/25/24 08:00 Room Air 04/25/24 08:00 98.1 F 90 14 147/81 H 93 L Room Air 04/25/24 07:53 Room Air 04/25/24 06:49 Room Air 04/25/24 05:00 Room Air 04/25/24 04:00 97.7 F 75 18 137/76 95 Room Air 04/25/24 03:00 Room Air 04/25/24 01:00 Room Air 04/24/24 23:00 Room Air 04/24/24 22:40 98.6 F 95 H 18 147/76 H 94 L Room Air 04/24/24 21:00 Room Air 04/24/24 20:34 Room Air 04/24/24 20:00 98.5 F 90 16 151/76 H 96 Room Air 04/24/24 18:42 Room Air 04/24/24 17:00 Room Air 04/24/24 15:48 98.1 F 102 H 18 134/66 95 Room Air Intake and Output 04/24/24 04/25/24 04/25/24 23:59 07:59 15:59 Intake Total 270 / 720 750 / 750 Output Total 240 / 1090 500 / 500 0 / 500 Balance 30 / -370 -500 / 250 750 / 250 Intake: Intake, Oral Amount 270 / 720 750 / 750 Output: Output, Urine Amount 240 / 1090 500 / 500 0 / 500 Other: Number of Unmeasured Voids 1 Number of Bowel Movements 1 Weight 83.824 kg Patient Weight 04/25/24 23:59 Weight 83.824 kg Laboratory Results - last 24 hr 04/24/24 20:26: POC Glucose 198 H 04/25/24 05:57: POC Glucose 133 H 04/25/24 08:03: WBC 11.5 H D, RBC 4.48 L, Hgb 13.3 L, Hct 40.9 L, MCV 91.2, MCH 29.7, MCHC 32.6, RDW 14.5, Plt Count 304, MPV 8.0, Neut % (Auto) 81.6 H, Lymph % (Auto) 14.2, Payne % (Auto) 4.0, Eos % (Auto) 0.0 L, Baso % (Auto) 0.2, Neut # (Auto) 9.4 H, Lymph # (Auto) 1.6, Payne # (Auto) 0.5, Eos # (Auto) 0.0, Baso # (Auto) 0.0, Sodium 139, Potassium 3.9, Chloride 103, Carbon Dioxide 35 H, Anion Gap 4.9 L, BUN 23 H, Creatinine 0.70, Estimated Creat Clear 75, Estimated GFR 110, Est GFR ( Amer) 133, Glucose 162 H, Calcium 9.5, Magnesium 1.7 D, Total Bilirubin 0.4, AST 39, ALT 47, Alkaline Phosphatase 86, C-Reactive Protein 1.6, Total Protein 6.3, Albumin 3.8, Globulin 2.5, Albumin/Globulin Ratio 1.5, Procalcitonin 0.262 04/25/24 10:24: POC Glucose 241 H I & O for Labs for Last 24 Hours: Intake & Output 04/22/24 04/23/24 04/24/24 04/25/24 23:59 23:59 23:59 23:59 Intake Total 720 / 720 750 / 750 Output Total 1090 / 1090 500 / 500 Balance -370 / -370 250 / 250 Weight 97.522 kg 83.489 kg 83.824 kg Head: Present normal inspection ENT: Present mucous membranes moist Neck: Present normal inspection Respiratory: Present accessory muscle use and diminished air movement Cardiac: Present Reg Rate and Rhythm and Regular Rhythm GI: Present soft and normal bowel sounds Rectal (male): Present deferred (male): Present deferred Extremities: Present normal inspection Comment:: Tender to palpation left hip with all range of motion exercises both active and passive. Tender palpation L4/L5 Assessment and Plan *Assessment and plan (1) Severe pain: Status: Acute Category: Medical Code(s): R52 - Pain, unspecified (2) Back pain: Status: Acute Category: Medical Code(s): M54.9 - Dorsalgia, unspecified Plan 78-year-old man with recent laminectomy presenting with severe retractable back pain radiating down his legs. Patient is unable to move in bed, symptoms sound like sciatica possibly exacerbated by increasing activity. Patient is requiring aggressive pain management due to the severe burden of his symptoms. Will initiate morphine now and gabapentin with the plan to decrease morphine dosage as gabapentin becomes therapeutic. Adjust both as tolerated Pain management Severe back pain s/p Laminectomy done at [facility] by Dr. Mcclendon. Spoke with Dr. Austin, orthopedic surgeon who recommended Dr. Mcclendon to reevaluate patient for back instability. Continue methocarbamol scheduled, scheduled gabapentin, as needed Dilaudid, and muscle relaxants. Patient appears to be proved on current therapy. Also continue daily physical therapy sessions. Hypertension -Hold home medications currently controlled -Resume amlodipine benazepril, Toprol, and hydrochlorothiazide once able Hyperlipidemia -Lovastatin 40 Disposition: ? Patient states back pain improving on muscle relaxants, as needed IV Dilaudid, methocarbamol scheduled. Will add gabapentin therapy. Long goals of care discussion occurred at bedside between Dr. Gee and patient with patient's present. Family would like to give current therapy a couple days. . Patient now able to walk to the door with physical therapy today. states patient unable to ambulate overnight so this is a big improvement. Will continue current therapy for a few days per /patient request. Patient has outpatient appointment with [facility] orthopedic surgeon who did back surgery May 31 next week.
[2024-04-25 16:00] VITALS: BP 138/73; PULSE 81; RESP 12; TEMP 36.7; O2SAT 95
[2024-04-25 16:18] LABS: POC Glucose,Bedside 168 (70-110)
--- NOTE | 2024-04-25 17:25 | PC.NURSE ---
pt received from ALEJANDRO Calvin around 1430. pt has not called out or had any complaints during shift. pt has not complained of any pain. fsbs at 1600 was 168. vss. pt resting in chair with call light in reach.
[2024-04-25 20:00] VITALS: BP 136/71; PULSE 76; RESP 18; TEMP 36.6; O2SAT 96
[2024-04-25 20:32] VITALS: O2SAT 96
[2024-04-25] MEDS: LOVASTATIN 40 MG 2 EACH PO (20:33)
[2024-04-25] MEDS: PAT OWN MED ***OMEPRAZOLE 20 MG 1 EACH PO (20:34)
[2024-04-25] MEDS: TAMSULOSIN 0.4MG CAPSULE 0.4 MG PO (20:34)
[2024-04-25 20:57] LABS: POC Glucose,Bedside 165 (70-110)
[2024-04-26] VITALS: BP 134/68; PULSE 72; RESP 16; TEMP 36.7; O2SAT 94
[2024-04-26 04:00] VITALS: BP 149/74; PULSE 81; RESP 16; TEMP 36.6; O2SAT 94; BMI 27.4
[2024-04-26] MEDS: IBUPROFEN 600 MG TABLET PO (04:56)
--- NOTE | 2024-04-26 05:26 | PC.NURSE ---
Patient alert and oriented x4 throughout shift. Tolerating room air well. Has complained of some mild left hip pain this shift, treated per MAR. He states he is feeling much better than when he was admitted. No needs expressed this shift. VSS. Call light within reach.
[2024-04-26 06:31] LABS: Anion Gap 4.7 mEq/L (5-15); Blood Urea Nitrogen 21 mg/dl (9-20); Calcium 9.2 mg/dl (8.4-10.2); Carbon Dioxide 34 mmol/L (22.0-30.0); Chloride 104 mmol/L (98-107); Creatinine Clearance Estimated 75 mL/min (50-200); Estimated Glomerular Filt Rate 110 ml/min (>60); GFR (African American) 133 ML/MIN (>60); Glucose 114 mg/dl (74-100); Magnesium 1.8 mg/dl (1.6-2.3); Potassium 3.7 mmoL/L (3.5-5.1); Sodium 139 mmol/L (136-145)
[2024-04-26 06:34] LABS: Basophils % 0.4 % (0.1-2.0); Eosinophils # 0.1 K/mm3 (0.0-0.4); Eosinophils % 0.9 % (0.1-12.0); Lymphocytes # 2.6 K/mm3 (0.7-4.5); Lymphocytes % 28.8 % (10-50); Mean Corpuscular HGB Conc 32.6 g/dL (31.8-35.4); Monocytes # 0.6 K/mm3 (0.1-1.0); Monocytes % 6.1 % (1.7-9.3); Neutrophils # 5.8 K/mm3 (1.8-7.8); Neutrophils % 63.8 % (37.0-80.0); Platelet Count 303 K/mm3 (142-424); Red Blood Count 4.49 M/mm3 (4.60-6.20); Red Cell Distribution Width 14.4 % (11.5-17.5); White Blood Count 9.2 K/mm3 (4.8-10.8)
[2024-04-26 08:00] VITALS: BP 137/62; PULSE 71; RESP 20; TEMP 36.9; O2SAT 95
[2024-04-26] MEDS: POTASSIUM CHLORIDE 10MEQ TABLET.ER 10 MEQ PO (08:01)
[2024-04-26] MEDS: ASPIRIN EC 81MG TABLET 81 MG PO (08:01)
[2024-04-26] MEDS: HYDROCHLOROTHIAZIDE 25 MG PO (08:01)
[2024-04-26] MEDS: CARVEDILOL 25 MG PO (08:02)
[2024-04-26] MEDS: METHOCARBAMOL 500MG TABLET 750 MG PO (08:02)
[2024-04-26] MEDS: FINASTERIDE 5MG TABLET 5 MG PO (08:02)
[2024-04-26] MEDS: AMLODIPINE PO (08:02)
[2024-04-26] MEDS: GABAPENTIN 100MG CAPSULE 200 MG PO (08:02)
[2024-04-26] MEDS: BENAZEPRIL PO (08:02)
--- NOTE | 2024-04-26 10:03 | P.DS_ITS ---
General Admission date:: 04/24/24 Discharge date: 04/26/24 HPI HPI HPI: Patient presents for evaluation of acute left lower extremity pain. Patient reports that he had acute severe onset of left low back pain/left lower extremity pain. However patient recently had a lumbar laminectomy done by Dr. Mcclendon at [facility] in February. He initially had difficulty ambulating postoperatively and ultimately had a prolonged stay [facility] followed by a 3-week stay at [facility]. Patient has been home for 3 weeks however he has now been able to ambulate with a walker. He has had some mild lumbar pain postoperatively but has been fairly independent intact tibias of daily living so much so that he and his are going to dinner this evening however he was hit with a acute onset left lumbar buttock and what he describes as hip pain. He states it is sharp stabbing. Radiates down his leg into his foot. Was more active today working with therapy doing his exercises including walking up and down the ramp of his house for the first time. He does not think that he overdid his exercises. He is unable to move in bed due to the severity of his pain and is requesting assistance as he cannot go home in this condition. CT scans done in the ER demonstrated no acute finding or pathology Received Toradol, dexamethasone, Tylenol, Valium with minimal improvement in his symptoms. He became transiently hypotensive with Valium. Currently in severe pain unable to move Related Data Hospital Course Hospital Course Hospital Course: Patient is presented to hospital acute on chronic back pain. Patient evaluated with CT thoracic/lumbar with signs of recent surgical procedure noted. Patient is status postlaminectomy [facility] by Dr. Mcclendon February 2024. Patient evaluated by orthopedic surgeon Dr. Austin, during hospitalization. Dr. Flores recommended patient be transferred back to [facility] for further lower back pain management. However, patient chose to stay at this institution and undergo conservative acute back pain management. Patient placed on scheduled patient methocarbamol, scheduled NSAID, scheduled gabapentin during hospitalization. Also received as needed Tylenol/IV Dilaudid during hospitalization for pain complaints. Patient worked with physical therapy, with dramatic improvement in functional status during hospitalization. Patient able to ambulate appropriately by 04/26/2024. Patient opted to be discharged home on conservative lower back/left hip pain control regimen. Patient has follow-up appointment with Dr. Mcclendon scheduled for May 31. Patient also advised to follow-up with primary care physician by Dr. Gee at time of hospital discharge. Exam Data for Last 24 hours Vital signs and Labs for Last 24 Hours: Temp Pulse Resp BP Pulse Ox O2 Del Method O2 Flow Rate 98.4 F 71 20 137/62 95 Room Air 2 04/26/24 08:00 04/26/24 08:00 04/26/24 08:00 04/26/24 08:00 04/26/24 08:00 04/26/24 08:00 04/23/24 23:02 Laboratory Results - last 24 hr 04/25/24 10:24: POC Glucose 241 H 04/25/24 16:09: POC Glucose 168 H 04/25/24 20:49: POC Glucose 165 H 04/26/24 05:44: WBC 9.2, RBC 4.49 L, Hgb 13.0 L, Hct 40.0 L, MCV 89.0, MCH 29.0, MCHC 32.6, RDW 14.4, Plt Count 303, MPV 8.0, Neut % (Auto) 63.8, Lymph % (Auto) 28.8, Wilkes % (Auto) 6.1, Eos % (Auto) 0.9, Baso % (Auto) 0.4, Neut # (Auto) 5.8, Lymph # (Auto) 2.6, Wilkes # (Auto) 0.6, Eos # (Auto) 0.1, Baso # (Auto) 0.0, Sodium 139, Potassium 3.7, Chloride 104, Carbon Dioxide 34 H, Anion Gap 4.7 L, B UN 21 H, Creatinine 0.70, Estimated Creat Clear 75, Estimated GFR 110, Est GFR ( Amer) 133, Glucose 114 H, Calcium 9.2, Magnesium 1.8 I & O for Last 24 hours: Intake & Output 04/23/24 04/24/24 04/25/24 04/26/24 23:59 23:59 23:59 23:59 Intake Total 720 / 720 1020 / 1020 160 / 160 Output Total 1090 / 1090 1825 / 2375 1275 / 1275 Balance -370 / -370 -805 / -1355 -1115 / -1115 Weight 97.522 kg 83.489 kg 83.824 kg 84.005 kg Constitutional Constitutional: no acute distress *Routine HEENT Exam Head: Present normocephalic Eye: Present EOMI ENT: Present mucous membranes moist *Routine Neck Exam Neck: Present supple, full ROM and normal carotid upstroke *Routine Respiratory Exam Respiratory: Present diminished air movement *Routine Cardiovascular Exam Cardiovascular: Present RRR, Normal S1 and Normal S2 *Routine Abdominal Exam Abdominal: Present soft and normoactive bowel sounds *Routine Extremities Exam Extremities: Present full ROM Routine Back/Spine/Pelvis Exam Back/Spine: Present paraspinal tenderness Back image: 2 1. L4, L5 L4-5 pain with movement 2. Left hip pain with active range of motion exercises dramatically improved versus admission assessment Results Data Completed and Pending Labs on day of discharge: Labs from last 24 hours 04/26/24 04/25/24 04/25/24 05:44 20:49 16:09 WBC 9.2 RBC 4.49 L Hgb 13.0 L Hct 40.0 L MCV 89.0 MCH 29.0 MCHC 32.6 RDW 14.4 Plt Count 303 MPV 8.0 Neut % (Auto) 63.8 Lymph % (Auto) 28.8 Wilkes % (Auto) 6.1 Eos % (Auto) 0.9 Baso % (Auto) 0.4 Neut # (Auto) 5.8 Lymph # (Auto) 2.6 Wilkes # (Auto) 0.6 Eos # (Auto) 0.1 Baso # (Auto) 0.0 Sodium 139 Potassium 3.7 Chloride 104 Carbon Dioxide 34 H Anion Gap 4.7 L BUN 21 H Creatinine 0.70 Estimated Creat Clear 75 Estimated GFR 110 Est GFR ( Amer) 133 Glucose 114 H POC Glucose 165 H 168 H Calcium 9.2 Magnesium 1.8 04/25/24 10:24 WBC RBC Hgb Hct MCV MCH MCHC RDW Plt Count MPV Neut % (Auto) Lymph % (Auto) Wilkes % (Auto) Eos % (Auto) Baso % (Auto) Neut # (Auto) Lymph # (Auto) Wilkes # (Auto) Eos # (Auto) Baso # (Auto) Sodium Potassium Chloride Carbon Dioxide Anion Gap BUN Creatinine Estimated Creat Clear Estimated GFR Est GFR ( Amer) Glucose POC Glucose 241 H Calcium Magnesium Imaging and Cardiology TESTING: Additional comments: PROCEDURE INFORMATION: Exam: CT Lumbar Spine Without Contrast Exam date and time: 04/23/2024 11:26 PM Age: 78 years old Clinical indication: Low back pain; Additional info: Acute low back pain left lower extremity pain TECHNIQUE: Imaging protocol: Computed tomography of the lumbar spine without contrast. Radiation optimization: All CT scans at this facility use at least one of these dose optimization techniques: automated exposure control; mA and/or kV adjustment per patient size (includes targeted exams where dose is matched to clinical indication); or iterative reconstruction. COMPARISON: MR LUMBAR SPINE WO CON 01/08/2024 3:06 PM FINDINGS: Bones/joints: Subtle scoliosis is noted convex right centered at L1-L2. Moderate degenerative disc disease at L1-L2 and L2-L3 with mitd-tb-[id number] degenerative disc disease from L3 through S1. There has been laminectomy throughout the lumbar spine. No acute fracture. Diffuse significant facet arthropathy is present. There is arqt-[id number] bony foraminal stenosis on the left at L5-S1. There are mild to moderate degenerative changes of the SI joints. Kidneys and ureters: Nonobstructing left intrarenal calculi are noted. Urinary bladder: Significant distension of the urinary bladder is noted. Reproductive: The prostate gland is significantly enlarged. Soft tissues: Unremarkable. IMPRESSION: 1. No acute findings of the lumbar spine. 2. Laminectomy from L1 through L5. 3. Cche-ef-kkrjewnw left foraminal stenosis at L5-S1. 4. Significant distension of the urinary bladder. 5. Other nonurgent findings as noted. PROCEDURE INFORMATION: Exam: CT Pelvis Without Contrast; Skeletal Exam date and time: 04/23/2024 11:28 PM Age: 78 years old Clinical indication: Pelvic pain; Additional info: Acute low back pain, left lower extremity pain TECHNIQUE: Imaging protocol: Computed tomography of the pelvis without contrast. Exam focused on the skeleton. Radiation optimization: All CT scans at this facility use at least one of these dose optimization techniques: automated exposure control; mA and/or kV adjustment per patient size (includes targeted exams where dose is matched to clinical indication); or iterative reconstruction. COMPARISON: CR [id number] HIP LT 2-3V W/PELVIS IF PERFOR 05/15/2017 9:46 AM FINDINGS: Intestine: Left colon diverticulosis without acute inflammation. Reproductive: The prostate gland is significantly enlarged. Urinary bladder: The urinary bladder significantly distended without focal abnormality. Bones/joints: The SI joints, hips and pubic symphysis are normally aligned. There are lsjv-sb-dqiydhoa degenerative changes of the SI joints and hips. No acute fracture. No evidence for avascular necrosis. Soft tissues: Small fat containing left inguinal hernia. IMPRESSION: 1. No acute findings. Hluk-bc-[id number] degenerative changes of the SI joints and hips. 2. Other nonemergent findings as noted. DS: Diagnosis Discharge Diagnosis (1) Severe pain: Status: Acute Code(s): R52 - Pain, unspecified (2) Back pain: Status: Acute Code(s): M54.9 - Dorsalgia, unspecified Meds Home Medications and Allergies Home Medications Medication Instructions Recorded Confirmed Type amlodipine 10 mg-benazepril 40 mg 1 cap PO DAILY 09/14/18 04/24/24 History capsule (Lotrel) aspirin 81 mg tablet,delayed 81 mg PO DAILY 09/14/18 04/24/24 History release lovastatin 40 mg tablet 80 mg PO HS Cholesterol 09/14/18 04/24/24 History hydrochlorothiazide 25 mg tablet 25 mg PO DAILY 30 days 11/08/18 04/24/24 History carvedilol 25 mg tablet 25 mg PO BID 04/24/24 04/24/24 History finasteride 5 mg tablet 5 mg PO DAILY 04/24/24 04/24/24 History metformin 850 mg tablet 850 mg PO BIDWMEAL 04/24/24 04/24/24 History omeprazole 20 mg capsule,delayed 20 mg PO DAILY 04/24/24 04/24/24 History release potassium chloride 10 mEq 10 meq PO DAILY 04/24/24 04/24/24 History tablet,extended release tamsulosin 0.4 mg capsule 0.4 mg PO HS 04/24/24 04/24/24 History celecoxib 200 mg capsule (Celebrex) 200 mg PO DAILY #10 caps 04/26/24 Rx gabapentin 100 mg capsule 200 mg (2 x 100 mg) PO TID #120 04/26/24 Rx caps methocarbamol 500 mg tablet 750 mg (1.5 x 500 mg) PO TID #45 04/26/24 Rx tabs New Prescriptions to Start Prescriptions: celecoxib [Celebrex] Gee,Eric gabapentin Gee,Eric methocarbamol Gee,[place] Allergies Allergy/AdvReac Type Severity Reaction Status Date / Time No Known Drug Allergies Allergy Unknown Verified 11/08/18 14:49 [NKDA] Discharge Plan Disposition Patient Disposition: Home Health Service Condition: Fair Discharge Order Discharge Orders: Discharge Order (Routine); Ordered 04/26/24 Ordered By: Eric Gee Follow up Plan Follow up with: Eddie Mcclendon [Referring] - 04/30/24 11:00 am (Patient already has outpatient appointment scheduled with Dr. Radames walker, neurosurgeon status post laminectomy February 2024. Please keep this appointment. Thank you) Omar Peoples MD [Primary Care Provider] - 05/02/24 11:15 am (please arrive 15 minutes prior to appointment) Prescriptions/Medication Reconciliation: New gabapentin 100 mg Capsule 200 mg PO TID Qty: 120 0RF celecoxib [Celebrex] 200 mg capsule 200 mg PO DAILY Qty: 10 0RF methocarbamol 500 mg Tablet 750 mg PO TID Qty: 45 0RF Rx Instructions: Please wait 8 hours after using this medication before operating heavy machinery or driving due to possible somnolence. Continued amlodipine-benazepril [Lotrel] 10-40 mg capsule 1 cap PO DAILY aspirin 81 mg tablet,delayed release (DR/EC) 81 mg PO DAILY lovastatin 40 mg tablet 80 mg PO HS hydrochlorothiazide 25 mg tablet 25 mg PO DAILY 30 Days carvedilol 25 mg tablet 25 mg PO BID potassium chloride 10 mEq tablet extended release 10 meq PO DAILY Patient Comments: TAKE ONE TABLET BY MOUTH DAILY tamsulosin 0.4 mg capsule 0.4 mg PO HS Patient Comments: TAKE ONE CAPSULE BY MOUTH DAILY AT BEDTIME omeprazole 20 mg capsule,delayed release(DR/EC) 20 mg PO DAILY Patient Comments: Take 1 capsule by mouth Daily. finasteride 5 mg tablet 5 mg PO DAILY Patient Comments: TAKE ONE TABLET BY MOUTH DAILY metformin 850 mg tablet 850 mg PO BIDWMEAL Patient Comments: TAKE ONE TABLET BY MOUTH TWICE DAILY with meals Problem Reconciliation Problems Reviewed?: Yes Patient Discharge Instructions ACTIVITY: Continue current activity DIET: continue same diet Patient Instructions: DI for Low Back Pain Print Language: Belarusian Providers Primary Care Provider: Omar Peoples Admit Provider: Eric Gee Attending Provider: Eric Gee
[2024-04-26] MEDS: MAGNESIUM SULFATE IN WATER 2 GM/50 ML PIGGYBACK IV (10:06)
[2024-04-26] MEDS: POTASSIUM CHLORIDE 20MEQ TAB 60 MEQ PO (10:06)
== END 2024-04-26 12:14 | disposition home health service (06) ==
LOC: ER 22:24 → 2ND 04-24 01:23
PROVIDERS: Physician Assistant; Student in an Organized Health Care Education/Training Program; Admitting Provider Internal Medicine; Emergency Provider Emergency Medicine; PCP Family Medicine; Visit Provider Internal Medicine
DX: M79.662 Pain in left lower leg; Z79.899 Other long term (current) drug therapy; Z79.84 Long term (current) use of oral hypoglycemic drugs; M54.50 Low back pain, unspecified; I10 Essential (primary) hypertension; E78.5 Hyperlipidemia, unspecified; E11.9 Type 2 diabetes mellitus without complications
CPT/HCPCS: 36415; 72131; 72192; 80048; 80053; 82962; 83735; 84100; 84145; 85007; 85025; 86140; 97163; 97530; 99285; G0378; J0131; J1170; J1650; J1885; J2270; J2405; J3475; J7120

== ENCOUNTER 2024-09-03 10:45 | Outpatient (POV) | payer MEDICARE, SELFPAY | END 2024-09-03 23:59 | disposition home or self-care (01) | LOC: SC 09-04 06:49 | PROVIDERS: Visit Provider Dermatology | DX: Z00.00 Encounter for general adult medical examination without abnormal findings (principal) ==